=== PATIENT | female | born 2000 | race Caucasian/White ===

== ENCOUNTER 2024-01-21 10:24 | Emergency (ER) | payer BC, OTHER ==
[2024-01-21 10:33] VITALS: BP 109/63; PULSE 66; RESP 18; TEMP 99.4; BMI 22.3
[2024-01-21] MEDS ORDERED: FLUORESCEIN NA 1 EA STRIP ONE (11:58)
[2024-01-21] MEDS ORDERED: TETRACAINE 0.5% OPHTH SOLN 2 ML BOTTLE ONE (11:58)
[2024-01-21] MEDS: TETRACAINE 0.5% HCL 0.6ML DROPPER.BOTTLE OD ONE (12:02)
[2024-01-21] MEDS: FLUORESCEIN NA 1 EA STRIP OD ONE (12:02)
== END 2024-01-21 12:20 | disposition home or self-care (01) ==
LOC: JERFT 10:24
DX: L03.213 Periorbital cellulitis (principal); H57.11 Ocular pain, right eye
CPT/HCPCS: 99283-25